=== PATIENT | female | born 1990 | race Two or more races ===

== ENCOUNTER 2024-10-22 03:27 | Inpatient (IN) | payer OTHER ==
[2024-10-22] VITALS (8 sets, daily range): BP systolic 99–133; BP diastolic 60–93
[~2024-10-22] VITALS: Ht 175.3 cm; Wt 87.1 kg
[2024-10-22] MEDS ORDERED: PRENATAL TABLE1 EAC1 PO (03:35)
[2024-10-22] MEDS ORDERED: RINGERS SOLUTION,LACTATED 1,000 ML IV SCH (03:45)
[2024-10-22 04:06] LABS: BASO % 0.3 % (0.1-1.2); EOS # 0.25 (0.04-0.54); EOS % 2.7 % (0.7-7.0); LYMPH # 1.68 (1.18-3.74); LYMPH % 17.9 % (19.3-53.1); MEAN PLATELET VOLUME 11.30 fl (9.4-12.4); MONO # 0.83 (0.24-0.82); MONO % 8.8 % (4.7-12.5); NEUT # 6.56 (1.56-6.13); NEUT % 69.8 % (34.0-71.1); RED CELL DISTRIBUTION WIDTH 12.5 % (11.6-14.4)
[2024-10-22 04:22] LABS: INR < 0.93
[2024-10-22 04:28] LABS: ALT/SGPT 22.0 U/L (12-78); AST/SGOT 14.0 U/L (15-37); BILIRUBIN TOTAL 0.2 mg/dL (0.3-1.2); BUN CREA RATIO 14.0 (7.0-25.0); CREATININE SERUM 0.63 mg/dL (0.55-1.02); GFR 108.83; GLOBULINA 3.6 G/DL (2.4-3.5); GLUCOSE FASTING 96.0 mg/dL (65-100); OSMOLALITY SERUM 278.0 MOSM/KG (275-295)
[2024-10-22] MEDS ORDERED: OXYTOCIN 500 ML IV ONE (09:00)
[2024-10-22] MEDS ORDERED: MORPHINE SULFATE 4 MG/ML CARTRIDGE IV PRN (09:00)
[2024-10-22] MEDS ORDERED: KETOROLAC TROMETHAMINE 30 MG VIAL IV ONE (10:00)
[2024-10-22] MEDS ORDERED: OXYTOCIN 1,000 ML IV SCH (10:00)
[2024-10-22] MEDS ORDERED: CHLORHEXIDINE GLUCONATE 120 ML BOTTLE TP SCH (10:00)
[2024-10-22] MEDS ORDERED: LIDOCAINE HCL 1% 10ML VIAL IJ ONE (10:45)
[2024-10-22] MEDS ORDERED: CHLORHEXIDINE GLUCONATE 120 ML BOTTLE TOP ONE (10:45)
[2024-10-22] MEDS ORDERED: ERYTHROMYCIN BASE OPHT 1GM EACH TUBE OP ONE (10:45)
[2024-10-23] VITALS: BP 107/70
[2024-10-23 04:00] VITALS: BP 112/76
[2024-10-23 06:41] LABS: BASO % 0.1 % (0.1-1.2); EOS # 0.18 (0.04-0.54); EOS % 1.9 % (0.7-7.0); LYMPH # 1.50 (1.18-3.74); LYMPH % 16.1 % (19.3-53.1); MEAN PLATELET VOLUME 11.70 fl (9.4-12.4); MONO # 0.71 (0.24-0.82); MONO % 7.6 % (4.7-12.5); NEUT # 6.83 (1.56-6.13); NEUT % 73.5 % (34.0-71.1); RED CELL DISTRIBUTION WIDTH 12.4 % (11.6-14.4)
[2024-10-23 08:01] VITALS: BP 106/68
[2024-10-23] MEDS ORDERED: HYDROCORTISONE 2.5% 30 GM TUBE TOP PRN (09:15)
[2024-10-23 13:06] VITALS: BP 114/74
[2024-10-23 15:55] VITALS: BP 121/86
[2024-10-24] VITALS: BP 122/72; BP 122/85
[2024-10-24 08:09] VITALS: BP 124/86
== END 2024-10-24 10:49 | disposition home or self-care (01) | DRG 807 ==
LOC: LDR 03:27 → OB/GYN 03:27
PROVIDERS: ADMIT Obstetrics & Gynecology; ATTEND Obstetrics & Gynecology
PROC: 10E0XZZ Delivery of Products of Conception, External Approach (ICD-10-PCS; principal; 2024-10-22)
PROC: 0HQ9XZZ Repair Perineum Skin, External Approach (ICD-10-PCS; 2024-10-22)
PROC: 4A1HXCZ Monitoring of Products of Conception, Cardiac Rate, External Approach (ICD-10-PCS; 2024-10-22)
DX: O70.0 First degree perineal laceration during delivery (principal); Z37.0 Single live birth; Z3A.37 37 weeks gestation of pregnancy